=== PATIENT | male | born 1995 | race Caucasian/White ===

== ENCOUNTER 2021-12-06 10:19 | Emergency (ER) | payer OTHER, MEDICAID ==
[~2021-12-06] VITALS: Ht 180.3 cm; Wt 77.1 kg
[~2021-12-06 10:19] MED LIST: ADDERALL 20 MG20 MG; AUGMENTIN 875875 M1 PO; AZITHROMYCIN 2250 MG PO; GUANFACINE HCL1 MG; NOHOMEMEDICATIONS; NORCO 5-325 TA1 EACH PO; PREDNISONE 20 M20 M1 PO; PROAIR HFA8.5 GM IH; PROMETHAZINE-D120 ML PO; PROMETHAZINE12.5 M1 PO; PROVENTIL HFA6.7 G1 INH; TAMSULOSIN HCL0.4 MG PO; ZOFRAN ODT4 MG PO
[2021-12-06] MEDS ORDERED: ALPRAZOLAM XR3 MG PO (10:26)
[2021-12-06 11:21] LABS: URINE BILIRUBIN NEGATIVE (Negative); URINE BLOOD 3+ (Negative); URINE CLARITY CLEAR; URINE COLOR YELLOW; URINE GLUCOSE-RANDOM NEGATIVE (Negative); URINE KETONES 3+ (Negative); URINE LEUKOCYTES-REFLEX NEGATIVE (Negative); URINE NITRITE-REFLEX NEGATIVE (Negative); URINE PROTEIN TRACE (Negative); URINE SPECIFIC GRAVITY 1.025 (1.005-1.030)
[2021-12-06 11:22] LABS: ACETEST (KETONE CONFIRMATORY) Moderate (Negative); BACTERIA-REFLEX None Seen /HPF (None Seen); CASTS None Seen /LPF (None Seen); CRYSTALS None Seen /LPF (None Seen); SQUAMOUS 0-3 Few /LPF (0-3); URINE WBC-REFLEX None Seen /HPF (0-5)
[2021-12-06 12:05] LABS: CALCIUM 9.4 mg/dL (8.5-10.1); CREATININE 1.2 mg/dL (0.6-1.3); POTASSIUM 3.4 mmol/L (3.5-5.1)
[2021-12-06] MEDS ORDERED: IBUPROFEN 600600 M1 PO ×2 (12:41→12:52)
[2021-12-06] MEDS ORDERED: FLOMAX0.4 MG PO ×2 (12:41→12:52)
[2021-12-06] MEDS ORDERED: ONDANSETRON HCL4 M2 PO ×2 (12:41→12:52)
[2021-12-06] MEDS ORDERED: HYDROCODON-ACE1 EAC7 PO (12:50)
[2021-12-06 13:07] VITALS: BP 127/77
== END 2021-12-06 13:07 | disposition home or self-care (01) ==
LOC: M.ERS 10:19
PROVIDERS: Emergency Medicine Emergency Medical Services; Physician Assistant Medical
DX: N20.1 Calculus of ureter (principal); R11.2 Nausea with vomiting, unspecified; E86.0 Dehydration; J45.909 Unspecified asthma, uncomplicated; F90.9 Attention-deficit hyperactivity disorder, unspecified type; F25.9 Schizoaffective disorder, unspecified; F17.210 Nicotine dependence, cigarettes, uncomplicated; Z87.442 Personal history of urinary calculi; Z79.899 Other long term (current) drug therapy